=== PATIENT | male | born 2005 | race Caucasian/White ===

== ENCOUNTER 2023-01-15 18:49 | Emergency (ER) | payer OTHER ==
[~2023-01-15] VITALS: Ht 175.3 cm; Wt 70.3 kg
== END 2023-01-15 21:37 | disposition home or self-care (01) ==
LOC: FSED 18:55
DX: S02.2XXA Fracture of nasal bones, initial encounter for closed fracture (principal); R04.0 Epistaxis; Y93.71 Activity, boxing; Y92.89 Other specified places as the place of occurrence of the external cause
CPT/HCPCS: 70140; 99283